=== PATIENT | female | born 2000 | race Hispanic/Latino ===

== ENCOUNTER 2024-11-23 00:52 | Emergency (ER) | payer SELFPAY ==
[~2024-11-23] VITALS: Ht 162.6 cm; Wt 72.7 kg
[2024-11-23] VITALS (7 sets, daily range): BP systolic 91–140; BP diastolic 56–90
[2024-11-23] MEDS ORDERED: MORPHINE SULFATE 4 MG/ML VIAL IV ONE (01:10)
[2024-11-23] MEDS ORDERED: KETOROLAC TROMETHAMINE 30 MG/ML SDV IV ONE (01:10)
[2024-11-23] MEDS ORDERED: ONDANSETRON HCl 4 MG/2 ML SDV IV ONE (01:10)
[2024-11-23 01:36] LABS: BASO% 0.3 % (0-3); EOS% 1.1 % (0-8); HEMATOCRIT 41.1 % (37.0-47.0); HEMOGLOBIN 13.6 g/dl (12.0-16.0); IMMATURE GRANULOCYTES 0.2 % (0.0-5.0); LYMPH% 37.5 % (15-41); MEAN CELL VOLUME 87.3 fL CALC (80.0-100.0); MEAN CORPUSCULAR HGB 28.9 pG CALC (26.0-32.0); MEAN CORPUSCULAR HGB CONC 33.1 g/dL CAL (32.0-36.0); NEUT# 6.42 thou/uL (2.00-7.15); NEUT% 53.9 % (42-76); RED BLOOD COUNT 4.71 mill/uL (4.20-5.60); RED CELL DISTRI WIDTH 11.8 % (11.5-15.5)
[2024-11-23 01:43] LABS: ALBUMIN 4.7 g/dL (3.2-5.0); BILIRUBIN, TOTAL 0.4 mg/dL (0.02-1.3); CREATININE 0.7 mg/dL (0.5-1.0); POTASSIUM 3.7 mmol/l (3.5-5.1)
[2024-11-23 02:35] LABS: URINE BILIRUBIN - DIPSTICK Negative (NEGATIVE); URINE BLOOD DIPSTICK Moderate (NEGATIVE); URINE GLUCOSE - DIPSTICK Negative (NEGATIVE); URINE KETONE Negative (NEGATIVE); URINE LEUK ESTERASE Negative (NEGATIVE); URINE NITRITE - DIPSTICK Negative (Negative); URINE PROTEIN - DIPSTICK Negative (NEG-TRACE); URINE UROBILINOGEN - DIPSTICK 0.2 E.U./dL (0.2)
[2024-11-23 02:40] LABS: URINE COLOR Yellow
[2024-11-23 02:49] LABS: URINE MUCUS MODERATE hpf (NONE-FEW); URINE SQUAMOUS EPITHELIAL CELL FEW EPI/hpf (0-FEW)
[2024-11-23] MEDS ORDERED: EXCEDRIN PO (03:13)
== END 2024-11-23 04:14 | disposition home or self-care (01) | DRG 103 ==
LOC: ED 00:52
PROVIDERS: Family Medicine
DX: R51.9 Headache, unspecified (principal)
CPT/HCPCS: J2405